=== PATIENT | female | born 1975 | race Caucasian/White ===

== ENCOUNTER → 2018-04-30 | Day surgery (SDC) | payer OTHER ==
--- NOTE | 2018-05-01 09:39 | RAD REPORT ---
EXAM DESCRIPTION: US - Guided FNA Non Breast - 04/30/2018 12:27 pm CLINICAL HISTORY: ICD E04.1/thyroid nodule. COMPARISON: March 16, 2018. FINDINGS: The prior ultrasound was reviewed. It was decided to come biopsy to the dominant nodule within the right lobe measuring 1.7 cm. The lida ent requested the a biopsy of the small calcified nodule as ell. The risks, benefits and alternatives to the procedure were explained the patient and informed consent obtained. Skin and subcutaneous tissues were anesthetized with Lidocaine. Under sonographic guidance , multiple 25-gauge needle passes were obtained into the 1.7 cm nodule within the right lobe. Skin and subcutaneous tissues were anesthetized with Lidocaine and additional 25-gauge needle passes obtained into the small calcified nodule within the right lobe of the thyroid gland. The specimens were given to pathology. The patient complained of palpable nodules within the right periauricular region. Ultrasound demonstr ated two sub-centimeter lymph nodes which did not have suspicious characteristics. If this lymph node s significantly enlarge on physical examination ultrasound would be recommended for re-evaluation IMPRESSION: Fine-needle aspiration of two nodules in the right lobe of the thyroid gland.
== END | disposition home or self-care (01) ==
LOC: FNA 10:45
PROVIDERS: ATTEND Otolaryngology Otolaryngology/Facial Plastic Surgery
PROC: 0G9H3ZX Drainage of Right Thyroid Gland Lobe, Percutaneous Approach, Diagnostic (ICD-10-PCS; principal; 2018-04-30)
PROC: BG44ZZZ Ultrasonography of Thyroid Gland (ICD-10-PCS; 2018-04-30)
DX: E04.1 Nontoxic single thyroid nodule (principal); R22.0 Localized swelling, mass and lump, head
CPT/HCPCS: 88162; 88305